=== PATIENT | female | born 2000 | race African-American/Black ===

== ENCOUNTER 2023-12-27 20:31 | Emergency (ER) | payer MEDICAID, OTHER ==
[~2023-12-27] VITALS: Ht 160 cm; Wt 120.5 kg
[2023-12-27 20:48] VITALS: BP 146/89; PULSE 79; RESP 18; O2SAT 97
== END 2023-12-27 21:02 | disposition home or self-care (01) ==
LOC: ER 20:31
DX: I10 Essential (primary) hypertension (principal)
CPT/HCPCS: 99281